=== PATIENT | male | born 1990 | race Caucasian/White ===

== ENCOUNTER 2024-01-18 15:05 | Emergency (ER) | payer OTHER ==
[~2024-01-18] VITALS: Ht 180.3 cm; Wt 81.6 kg
[2024-01-18 15:13] VITALS: TEMP 98.4; O2SAT 100
[2024-01-18] MEDS ORDERED: AMOX1TAB16 MT (15:49)
[2024-01-18] MEDS ORDERED: HYDR-4001 MT (15:49)
[2024-01-18] MEDS ORDERED: IBUP-2029 MT (15:49)
[2024-01-18] MEDS: HYDROCODONE/ACETAMINOPHEN 5/325MG TABLET PO ONE (15:54)
[2024-01-18 15:57] VITALS: BP 156/90; PULSE 103; RESP 18; O2SAT 98
== END 2024-01-18 15:59 | disposition home or self-care (01) ==
LOC: ER 15:05
DX: K03.81 Cracked tooth (principal)
CPT/HCPCS: 99283